=== PATIENT | male | born 1945 | race Caucasian/White ===

== ENCOUNTER → 2017-05-24 | Day surgery (SDC) | payer OTHER ==
[2017-04-25 10:07] VITALS: Ht 182.9 cm; Wt 113.6 kg
[~2017-05-24] VITALS: Ht 182.9 cm; Wt 113.6 kg
[~2017-05-24] MED LIST: 500ML BSS 0.3ML EPI 1:1000PF IRRIG ONE; ACETAMINOPHEN 325 MG TAB PO PRN; AMVISC PLUS 0.8ML SYRINGE INT OCU ONE; ASPCH81X PO; ATEN50TA8 PO; ATROPINE SULFATE 0.1 MG/ML 5ML SYR IV PRN; BROM0.0911 OP; BSS FLUSH ONE; ENDOCOAT 0.85ML SYRINGE INT OCU ONE; EpHEDrine SULFATE INJ 50 MG/ML AMP IV PRN; EpINEphrine INJ 1MG/ML AMP 1 MG/ML AMP ONE; LACTATED RINGER'S 1000ML 500 ML IV SCH; LIDOCAINE 4% OP SOLN DROP CHARGE ONE; LIDOCAINE 4% OP SOLN DROP CHARGE OPR SCH; LIDOCAINE HCL 1% MPF 2 ML VIAL ONE; LISI-461 PO; MIDAZOLAM HCL 1 MG/ML 2ML VIAL ONE; MIX: 4ML BSS 1ML EPI 1:1000 PF TOP ONE; MOXIFLOXACIN OPH SOLN PER DROP CHARGE ONE; NIFE30TA83 PO; OFLO0.3S OP; ONDANSETRON INJ 2 MG/ML 2 ML VIAL IV PRN; PHENYLEPHRINE HCL 10% OP SOLN 5 ML BTL OPR ONE; POVIDONE-IODINE OP SOLN 30 ML BTL ONE; PRED1SUS3 OPR; PRLSR20 PO; PROPARACAINE 0.5% OP SOLN PER DROP CHARGE OPR SCH; PROPARACAINE HCL 0.5% OP SOLN 15 ML BTL OPR ONE; PRVC40 PO; TOBRAMYCIN/DEXAMETHASONE OPH OINT PER APPLN CHARGE ONE; VITAMIN D PO
--- NOTE | 2017-05-24 08:36 | History & Physical Bridge - [place] ---
H&P Re-Evaluation Bridge Note: I have examined the patient, reviewed the History & Physical and in the interval since the performance of the History & Physical I have noted the following changes of clinical significance: No changes noted
[2017-05-24] MEDS: PHENYLEPHRINE HCL 2.5% OP SOLN PER DROP CHARGE OPR SCH ×3 (08:47→08:58)
[2017-05-24] MEDS: TROPICAMIDE 1% OP SOLN PER DROP CHARGE OPR SCH ×3 (08:48→09:00)
[2017-05-24] MEDS: CYCLOPENTOLATE HCL 1% OP SOLN PER DROP CHARGE OPR SCH ×3 (08:50→09:04)
[2017-05-24] MEDS: MOXIFLOXACIN OPH SOLN PER DROP CHARGE OPR SCH ×3 (08:52→09:05)
--- NOTE | 2017-05-24 10:05 | [facility] Post Operative Brief Note ---
Immediate Operative Summary Operative Date May 24, 2017. Pre-Operative Diagnosis Cataract Right Eye Post-Operative Diagnosis Same Procedure(s) Performed Right Cataract Phacoemulsification With Intraocular Lens Implant Surgeon Dr. Carmen Termite Treater Helper Surgeon(s) None Estimated Blood Loss 0 Findings right cataract Specimens None Complication(s) None Disposition
[2017-05-24 10:07] VITALS: TEMP 36.5
--- NOTE | 2017-05-24 10:07 | [facility] Operative Report ---
Operative Report Date of Service May 24, 2017. Operative Report DATE OF OPERATION: 05/24/17 PREOPERATIVE DIAGNOSIS: Senile nuclear cataract and astigmatism, right eye POSTOPERATIVE DIAGNOSIS: Senile nuclear cataract and astigmatism, right eye PROCEDURE PERFORMED: Phacoemulsification with toric intraocular lens implantation, right eye SURGEON: Dr. Pablo Carmen ANESTHESIA: Topical with 1% intracameral lidocaine and monitored anesthesia care COMPLICATIONS: None DESCRIPTION OF PROCEDURE: After positively identifying the patient both verbally and by wristband in the preoperative area, the right eye was marked as the operative eye. Using a sterile marker, the 3:00, 6:00, and 9:00 positions on the limbus were marked after placing a drop of proparacaine. The patient was first taken to the laser room where the femtosecond laser was used to create the capsulotomy, lens fragmentation, arcuate incision, and main incision. The patient was then brought back to the operating room by the anesthesia and nursing staff where they were given a drop of tetracaine and betadine into the operative eye. They were then sterilely prepped and draped in the standard fashion typical for ophthalmic surgery. Steri-strips were placed along the upper eyelids to keep the lashes back, and a lid speculum was placed into the operative eye. At this point, a documented time out was performed with members of the ophthalmology, nursing, and anesthesia staffs all agreeing upon the correct patient, correct location for surgery, correct procedure, and correct type and power of intraocular lens to be implanted. The microscope was then swung into position. Then, a paracentesis wound was made using a sideport blade. Then, in sequence, 1% preservative-free lidocaine followed by Endocoat viscoelastic was injected into the anterior chamber. Next , the main incision was opened with a Matthew spatula, and Utrata forceps were used to remove the capsulotomy. Hydrodissection was then performed with BSS on a flat-tip cannula. Next, the phacoemulsification handpiece was introduced into the eye and used to remove the nucleus in a [id number] fashion. This was done without complication and then the irrigation-aspiration handpiece was introduced into the eye and used to remove all remaining cortical and epinuclear material. Amvisc was then injected into the anterior chamber as well as into the capsular bag and using the lens injector system, a ZXR00 21.5 D lens, serial number [id number], and expiration date 02/2022 was injected into the capsular bag and rotated into the correct position. Next, the irrigation- aspiration handpiece was used to remove all remaining Amvisc. BSS was used to hydrate the main wound, and then BSS was injected into the paracentesis site to reach physiologic pressure and then the main wound was checked and found to be watertight. The patient was given drops of Vigamox and tobradex ointment into the operative eye, and then the surrounding area was cleaned and dried. A clear plastic shield was placed over the eye and the patient was then sat up and taken from the operating room by the anesthesia staff having tolerated the procedure well and suffering no complications. DISPOSITION: The patient was returned to the recovery room in stable condition. I attest to the content of the Intraoperative Record and any orders documented therein. Any exceptions are noted below.
--- NOTE | 2017-05-24 10:08 | Discharge Instructions-SurgCtr ---
Discharge Instructions Date of Service May 24, 2017. Visit Reason for Visit: Cataract Right Eye Discharge Discharge Diagnosis / Problem: right cataract Discharge Goals Goal(s): Decrease discomfort, Improve function Activity Recommendations Activity Limitations: as noted below Anesthesia . Post Anesthesia Instructions: If you have had General Anesthesia or IV Sedation: * Do not drive today. * Resume driving when surgeon permits. * Do not make important decisions or sign legal documents today. * Call surgeon for: 1. Temperature elevations greater than 101 degrees F. 2. Uncontrollable pain. 3. Excessive bleeding. 4. Persistent nausea and vomiting. 5. Medication intolerance (nausea, vomiting or rash). * For nausea and vomiting use only clear liquids such as: tea, soda, bouillon until nausea subsides, then gradually increase diet as tolerated. * If you have any concerns or questions, call your surgeon's office. If physician is unavailable and it is an emergency, call 911 or go to the nearest emergency room. . Instructions / Follow-Up Instructions / Follow-Up ACTIVITY RECOMMENDATIONS: * Light activities. * You may walk outside, read, watch television. * You may notice redness on the white part of the eye and some blurry vision - this is normal. MEDICATIONS: Resume previous medications unless instructed otherwise by your surgeon. Start all eye drops at 12 pm today: * Eye drops (today): Prednisone - one drop in operative eye every 2 hours while awake Ofloxacin - one drop in operative eye every 2 hours while awake Bromfenac - one drop in operative eye daily SPECIAL CARE INSTRUCTIONS: * Tape plastic shield over eye to sleep at night. Call your doctor at with any concerns or problems. FOLLOW UP VISIT: Follow-up with Dr Carmen at [place] office as scheduled. Diet Recommendations Home Diet: no limitations Procedures Procedures Performed: Right Cataract Phacoemulsification With Intraocular Lens Implant Pending Studies Studies pending at discharge: no Medical Emergencies . Who to Call and When: Medical Emergencies: If at any time you feel your situation is an emergency, please call 911 immediately. . Non-Emergent Contact Non-Emergency issues call your: Surgeon . . "Provider Documentation" section prepared by Pablo Carmen. .
[2017-05-24 10:31] VITALS: BP 150/82; PULSE 67; O2SAT 96
--- NOTE | 2017-05-24 10:41 | Anesthesiology Progress Note ---
Anesthesia Post Op Note Date & Time May 24, 2017 at 10:41 Vital Signs Pain Intensity: 0 Vital Signs Past 12 Hours Date Time Temp Pulse Resp B/P (MAP) Pulse Ox O2 Delivery O2 Flow Rate FiO2 05/24/17 10:31 67 16 150/82 (104) 96 Room Air 05/24/17 10:07 36.5 69 20 157/82 (107) 96 Room Air 05/24/17 09:32 67 16 183/85 97 05/24/17 09:30 68 16 179/80 98 05/24/17 08:33 36.7 70 18 135/76 (95) 95 Room Air Notes Mental Status: alert / awake / arousable, participated in evaluation Nausea / Vomiting: adequately controlled Pain: adequately controlled Airway Patency, RR, SpO2: stable & adequate BP & HR: stable & adequate Hydration State: stable & adequate Anesthetic Complications: no major complications apparent
== END | disposition home or self-care (01) ==
LOC: X.SURG 08:13
PROVIDERS: ATTEND Ophthalmology
DX: H25.11 Age-related nuclear cataract, right eye (principal); H52.201 Unspecified astigmatism, right eye; I10 Essential (primary) hypertension; E78.00 Pure hypercholesterolemia, unspecified; K21.9 Gastro-esophageal reflux disease without esophagitis; Z79.82 Long term (current) use of aspirin; Z79.899 Other long term (current) drug therapy